=== PATIENT | female | born 1970 | race Caucasian/White ===

== ENCOUNTER 2019-11-11 13:33 | Day surgery (SDC) | payer OTHER ==
[2019-11-01 11:12] VITALS: BMI 24.1
[~2019-11-11 13:33] MED LIST: BUPIVICAINE 0.25%/MORPH PF/KETOROLAC - 51ML DISP.SYRINGE IA ONE; CEFAZOLIN 1 GM/D5W 1 GM/50 ML BAG IVPB ONE; CELECOXIB 200 MG CAPSULE PO ONE; EPHEDRINE SULFATE/0.9% NACL/PF 50 MG/10 ML SYRINGE NR ONE; GABAPENTIN 300 MG CAPSULE PO ONE; LACTATED RINGERS SOLUTION 1,000 ML IV SCH; MAG HYDROX/AL HYDROX/SIMETH 30 ML UNIT-DOSE CUP PO PRN; MAGNESIUM HYDROX 2400MG/30ML ORAL SUSPENSION 30 ML CUP PO PRN; MIDAZOLAM HCL 2 MG/2 ML SINGLE DOSE VIAL ONE; ONDANSETRON 4 MG/2 ML VIAL IVPUSH PRN; PROPOFOL 20 ML ONE; ROPIVACAINE HCL 0.5% 30ML VIAL ONE; TRANEXAMIC ACID 1000 MG/10 ML VIAL IVPUSH ONE
--- NOTE | 2019-11-11 13:38 | HP ---
History & Physical Update - History History: No Change - Physical Physical: No Change - Assessment Assessment: No Change - Plan Plan: No Change (since visit on 10/27/19)
[2019-11-11] MEDS ORDERED: ONDANSETRON 4 MG/2 ML VIAL IVPUSH PRN (13:42)
[2019-11-11] MEDS ORDERED: oxyCODONE HCL 5 MG TABLET PO PRN ×2 (13:42)
[2019-11-11] MEDS ORDERED: PROMETHAZINE HCL 25 MG/1 ML VIAL IVPUSH PRN (13:42)
--- NOTE | 2019-11-11 13:43 | OP ---
Operative Note - Note: Operative Date: 11/11/19 Pre-Operative Diagnosis: Left knee medial compartment osteoarthritis Operation: left medial unicondylar knee Makoplasty Post-Operative Diagnosis: Same as Pre-op Surgeon: Warner Lopez Ethanol Maintenance Mechanic: Annemarie Hoff Anesthesiologist/MATERIAL HANDLER FLOORPERSON: Lonnie Sutherland Anesthesia: Spinal, Local (block with sedation) Estimated Blood Loss (mls): 50 Fluid Volume Replaced (mls): 500 Operative Report Dictated: Yes
--- NOTE | 2019-11-11 13:44 | SURG ---
Surgery Nurse Practitioner Physician Assistant Note Nurse Practitioner Physician Assistant: Annemarie Hoff PA-C Date of Service: 11/11/19 Diagnosis: Left knee medial compartment osteoarthritis Procedure: left medial unicondylar knee Makoplasty I was present for the entirety of the operative procedure. For further detail, please refer to operative report. Visit type - Case Type Case Type: Scheduled - Emergency Emergency Visit: No - New patient This patient is new to me today: Yes Date on this admission: 11/11/19
--- NOTE | 2019-11-11 14:40 | OP ---
DATE OF OPERATION: DATE OF DICTATION: 11/11/2019 PREOPERATIVE DIAGNOSIS: Left knee medial compartment arthritis. POSTOPERATIVE DIAGNOSIS: Left knee medial compartment arthritis. OPERATION: Left knee partial knee replacement of the medial compartment with Alistair robot finance assistant. SURGEON: Warner Lopez MD MULTIMEDIA ENGINEER: Annemarie Hoff PA-C TYPE OF ANESTHESIA: Spinal. DISPOSITION: Patient returned to the recovery room in stable condition. COMPONENTS USED: Jena Alistair size 4 left medial tibia and size 4 left medial femur with an 8-mm insert. DRAINS PLACED: None. ESTIMATED BLOOD LOSS: Less than 50 mL. TOTAL TOURNIQUET TIME: Approximately 75 minutes. FINDINGS: Deficient ACL. INDICATIONS FOR PROCEDURE: Patient failed nonoperative treatment for her left knee arthritis and was indicated for a left partial knee replacement. Preoperatively in the waiting area, as well as in the office, I had a long discussion with the patient regarding the plan and the expected outcome, and the risks, benefits, and alternatives of surgery. The risks include, but are not limited to, infection which may require future surgery and removal of implants, bleeding which may require transfusion, damage to nerves/arteries/veins/tendons/muscles and other adjacent structures leading to possible numbness, weakness, decreased function, and the possible need for surgical repair. I also discussed with her the possibility of intraoperative and postoperative fractures, implant loosening, stiffness, need for extensive therapy, and need for revision for a variety of reasons, which include progression of her arthritis to other compartments of the knee, and need for conversion to total knee replacement. We also discussed blood clots and other possible medical complications. This was discussed at length and consent was obtained. PROCEDURE IN DETAIL: Patient was taken to the operating room and placed on the operating table in a supine position. Following induction of spinal anesthesia, a well-padded tourniquet was placed high on the left thigh and left lower extremity was prepped and draped in sterile fashion. A timeout was performed correct patient and procedure to be performed, as well as the patient received appropriate preoperative antibiotics and had a compression device on the nonoperative leg. Tourniquet was elevated, followed by a midline incision on the medial peripatellar arthrotomy. Arrays were placed through stab incisions in the tibia and the femur, after blunt dissection, and the patient was appropriately registered and landmarks identified. We then stretched the knee and found it to be in 6-1/2 degrees of varus preoperatively with a 5-degree flexion contracture. We then planned our surgery, and cut and burred with the robot in accordance with our plan, while protecting the surrounding soft tissues. We then trialed with our final components as listed above. There was good stability, soft-tissue tension, and range of motion. The knee was corrected into 2-1/2 degrees of varus and full extension. The meniscus had been removed already. We copiously irrigated the knee, after we removed our trials. We made sure there was nothing in the back of the knee. We then did sequential cementation, starting with the tibia and then the femur. Excess cement was removed. We inserted our trial poly, waited for the cement to harden, checked our final measurements, copiously irrigated the knee, and then removed all our check points and arrays. When the cement was fully hardened, we took out the trial poly, checked the back of the knee to make sure there was nothing there including cement, and then inserted the final poly and it seated flush. There was good stability, soft-tissue tension, and range of motion. The patella tracked centrally with our final implants. The wound was copiously irrigated. A local anesthetic was injected. No. 1 Vicryl was used for the arthrotomy, 2-0 Vicryl and 3-0 Biosyn were used for the skin. A dry, sterile compressive dressing was placed and the tourniquet was released. Compartments were soft during the procedure, pulses were palpated. Patient was transferred to the recovery room in stable condition. She will be mobilized, weight-bearing as tolerated. WOUND CLASSIFICATION: Clean. COMPLICATIONS: None. SPECIMENS: None. Adrien [id number]
[2019-11-11 14:47] VITALS: BP 106/51; PULSE 70; TEMP 98.1
[2019-11-11] MEDS ORDERED: FERROUS SO4 325 MG TABLET (FP) PO SCH (17:30)
[2019-11-11] MEDS ORDERED: CEFAZOLIN 1 GM/D5W 1 GM/50 ML BAG IVPB SCH (20:00)
[2019-11-11] MEDS ORDERED: ASPIRIN 325 MG TABLET PO SCH (22:00)
[2019-11-11] MEDS ORDERED: SENNOSIDES/DOCUSATE COMBO (SENNA PLUS) TABLET (UD) PO SCH (22:00)
[2019-11-12] MEDS ORDERED: PANTOPRAZOLE 40 MG TABLET PO SCH (10:00)
[2019-11-12] MEDS ORDERED: MULTIVITAMINS (DAILY MVI) TABLET (FP) PO SCH (10:00)
== END 2019-11-11 19:30 | disposition home or self-care (01) ==
LOC: FM/S 13:33 → FASUSAT 13:33
PROVIDERS: ATTEND Orthopaedic Surgery
PROC: 8E0YXBZ Computer Assisted Procedure of Lower Extremity (ICD-10-PCS; 2019-11-11)
PROC: 8E0Y0CZ Robotic Assisted Procedure of Lower Extremity, Open Approach (ICD-10-PCS; 2019-11-11)
PROC: 0SRD0L9 Replacement of Left Knee Joint with Medial Unicondylar Synthetic Substitute, Cemented, Open Approach (ICD-10-PCS; principal; 2019-11-11 11:44)
DX: M17.12 Unilateral primary osteoarthritis, left knee (principal)
CPT/HCPCS: 20985; 27446; C1776; S2900; 73560-TC-LT-FY; 84703; 94760; 97116-GP; 97162-GP